=== PATIENT | male | born 1985 | race Caucasian/White ===

== ENCOUNTER 2016-03-16 15:34 | Emergency (ER) | payer BC, OTHER ==
[2016-03-16 18:22] LABS: Basophils # (A) 0.1 k/uL (0-0.2); Basophils % (A) 1 %; CH 30.6; CHCM 35.1; Eosinophils # (A) 0.1 k/uL (0-0.7); Eosinophils % (A) 2 %; HCT 47.7 % (39.0-53.0); HDW 2.87; HGB 15.9 gm/dL (13.0-17.5); Luc # (Auto) 0.11; Luc % (Auto) 1; Lymphocytes # (A) 2.6 k/uL (1.0-4.8); Lymphocytes % (A) 35 %; MCH 29.3 pg (25.0-35.0); MCHC 33.4 g/dL (31.0-37.0); MCV 87.6 fL (80.0-100.0); Monocytes # (A) 0.4 k/uL (0-1.0); Monocytes % (A) 5 %; Neutrophils # (A) 4.2 k/uL (1.3-7.7); Neutrophils % (A) 55 %; RBC 5.44 m/uL (4.30-5.90); RDW 12.7 % (11.5-15.5); WBC 7.5 k/uL (3.8-10.6); WBC (Perox) 7.16
[2016-03-16 18:24] LABS: Anion Gap 12 mmol/L; Blood Urea Nitrogen 14 mg/dL (9-20); Calcium 9.8 mg/dL (8.4-10.2); Carbon Dioxide 28 mmol/L (22-30); Chloride 103 mmol/L (98-107); Glucose 87 mg/dL (74-99); Magnesium 2.1 mg/dL (1.6-2.3); Non-African American GFR(MDRD) >60 (>60 ml/min/1.73 sqM); Potassium 4.2 mmol/L (3.5-5.1); Sodium 143 mmol/L (137-145)
[2016-03-16 18:25] LABS: Appearance,Urine Clear (Clear); Bilirubin,Urine Negative (Negative); Glucose,Urine (UA) Negative (Negative); Ketones,Urine Negative (Negative); Leukocyte Esterase,Urine Negative (Negative); Nitrite,Urine Negative (Negative); Protein,Urine Negative (Negative); Specific Gravity,Urine 1.007 (1.001-1.035); UA Billing (MACRO vs. MICRO) CHEM; Urobilinogen,Urine <2.0 mg/dL (<2.0)
--- NOTE | 2016-03-16 19:05 | ED ---
General Adult HPI - General Chief complaint: Extremity Injury, Lower Stated complaint: Hernia Time Seen by Provider: 03/16/16 17:24 Source: patient Mode of arrival: ambulatory Limitations: no limitations - History of Present Illness Initial comments: Patient is a 30-year-old male who presents to ED with a chief complaint of left- sided inguinal pain. Patient states that this pain has been present over the course the past 2-1/2 weeks. He states that it became present while he was lifting something at work. Patient states the pain is intermittent in nature and made worse when he is lifting objects at work. Patient states that he does have a history of left-sided inguinal hernia that was repaired about 3 years ago. The patient does not remember the name of the surgeon who repaired his inguinal hernia at this point in time. Patient denies any nausea or vomiting. Patient denies any dysuria or hematuria. He does state that the pain in the inguinal region does radiate down into the left testicle. Patient denies any recent trauma to the scrotum or testes. Patient initially went to an urgent care facility who evaluated the patient and recommended that he come to the ED for further evaluation. I specifically recommended that the patient have a ultrasound performed of his scrotum to rule out any pathology. - Related Data Home Medications Medication Instructions Recorded Confirmed Acetaminophen Tab [Tylenol Tab] 500 - 1,000 mg PO Q6H PRN 03/16/16 03/16/16 Ibuprofen [Motrin] 200 - 400 mg PO Q6H PRN 03/16/16 03/16/16 Allergies Allergy/AdvReac Type Severity Reaction Status Date / Time No Known Allergies Allergy Verified 03/16/16 17:42 Review of Systems ROS Statement: Those systems with pertinent positive or pertinent negative responses have been documented in the HPI. ROS Other: All systems not noted in ROS Statement are negative. Constitutional: Denies: fever, chills, weakness Eyes: Denies: eye pain ENT: Denies: ear pain, throat pain, dental pain Respiratory: Denies: cough, dyspnea, wheezes Cardiovascular: Denies: chest pain, palpitations Endocrine: Denies: fatigue Gastrointestinal: Reports: abdominal pain. Denies: nausea, vomiting, diarrhea, constipation Genitourinary: Reports: testicular pain, other (left-sided inguinal pain). Denies: urgency, dysuria, frequency, hematuria Musculoskeletal: Denies: back pain Skin: Denies: rash, lesions Neurological: Denies: headache, weakness Psychiatric: Denies: anxiety, depression Past Medical History Past Medical History: No Reported History History of Any Multi-Drug Resistant Organisms: None Reported Past Surgical History: Hernia Repair Past Psychological History: No Psychological Hx Reported Smoking Status: Never smoker Past Alcohol Use History: None Reported Past Drug Use History: None Reported General Exam Limitations: no limitations General appearance: alert, in no apparent distress Head exam: Present: atraumatic, normocephalic Eye exam: Present: normal appearance, PERRL Pupils: Present: normal accommodation ENT exam: Present: normal exam, mucous membranes moist Neck exam: Present: normal inspection, full ROM Respiratory exam: Present: normal lung sounds bilaterally. Absent: respiratory distress, wheezes, rales, rhonchi, stridor Cardiovascular Exam: Present: regular rate, normal rhythm GI/Abdominal exam: Present: soft, tenderness (mild tenderness noted in the left inguinal region). Absent: distended, guarding, rebound, rigid exam: Present: normal inspection, testicular tenderness (mild tenderness to palpation of the left testicle). Absent: scrotal swelling External exam: Present: normal external exam Back exam: Present: normal inspection Neurological exam: Present: alert, oriented X3 Psychiatric exam: Present: normal affect, normal mood Skin exam: Present: warm, dry, intact Course Vital Signs 03/16/16 03/16/16 16:48 19:41 Temperature 97.5 F L 98.2 F Pulse Rate 64 69 Respiratory 20 18 Rate Blood Pressure 119/71 120/82 O2 Sat by Pulse 99 98 Oximetry Medical Decision Making - Medical Decision Making Patient is a 30-year-old male who presents to ED with a chief complaint of left lower abdominal pain. This pain is particularly located in the inguinal region. Pain began after the patient was lifting objects at work. This pain is exacerbated by lifting objects. Patient has a history of left-sided inguinal hernia in the past. Patient states that the pain is intermittent in nature. He's been taking Tylenol at home for pain control. Patient went seen in urgent care earlier today. They recommended patient come to the ED for further evaluation using ultrasound. We'll order an ultrasound scrotum for the patient. Examination of the patient's left testicle demonstrated tenderness to palpation of the epididymis. There is some possibly patient may have epididymitis. Will obtain a urinalysis as well as basic labs for the patient. I offered the patient pain medications, though he states that he would prefer to hold off at this point in time due to the fact that his pain is not severe. 7:44 PM Updated patient of overall findings, including possible left-sided inguinal hernia. I suspect that this is likely the case given that the patient has had recurrent episodes of left-sided inguinal hernia in the past. The patient has requested a referral to a General Surgeon. I will provide him with this information so that he can follow up appropriately. Patient's pain is well- controlled here in the ED. Will discharge him home at this point in time. No evidence of acute infection. Ultrasound of the scrotum was noted to be unremarkable aside from possible inguinal hernia. Encouraged the patient to use Motrin or Tylenol for pain control. I provided the patient with a work note that states that he is not to lift more than 15 pounds until further evaluated by General Surgery. I have answered all of the patient's questions to his satisfaction. I have encouraged him to return the ED should his symptoms worsen, particularly if associated with fever or chills. - Lab Data Result diagrams: 03/16/16 17:55 03/16/16 17:55 Lab Results 03/16/16 03/16/16 03/16/16 Range/Units 17:55 17:55 17:55 WBC 7.5 (3.8-10.6) k/uL RBC 5.44 (4.30-5.90) m/uL Hgb 15.9 (13.0-17.5) gm/dL Hct 47.7 (39.0-53.0) % MCV 87.6 (80.0-100.0) fL MCH 29.3 (25.0-35.0) pg MCHC 33.4 (31.0-37.0) g/dL RDW 12.7 (11.5-15.5) % Plt Count 259 (150-450) k/uL Neutrophils % 55 % Lymphocytes % 35 % Monocytes % 5 % Eosinophils % 2 % Basophils % 1 % Neutrophils # 4.2 (1.3-7.7) k/uL Lymphocytes # 2.6 (1.0-4.8) k/uL Monocytes # 0.4 (0-1.0) k/uL Eosinophils # 0.1 (0-0.7) k/uL Basophils # 0.1 (0-0.2) k/uL Sodium 143 (137-145) mmol/L Potassium 4.2 (3.5-5.1) mmol/L Chloride 103 (98-107) mmol/L Carbon Dioxide 28 (22-30) mmol/L Anion Gap 12 mmol/L BUN 14 (9-20) mg/dL Creatinine 0.90 (0.66-1.25) mg/dL Est GFR (MDRD) Af Amer >60 (>60 ml/min/1.73 sqM) Est GFR (MDRD) Non-Af >60 (>60 ml/min/1.73 sqM) Glucose 87 (74-99) mg/dL Calcium 9.8 (8.4-10.2) mg/dL Magnesium 2.1 (1.6-2.3) mg/dL Urine Color Light Yellow Urine Appearance Clear (Clear) Urine pH 7.0 (5.0-8.0) Ur Specific [place] 1.007 (1.001-1.035) Urine Protein Negative (Negative) Urine Glucose (UA) Negative (Negative) Urine Ketones Negative (Negative) Urine Blood Negative (Negative) Urine Nitrate Negative (Negative) Urine Bilirubin Negative (Negative) Urine Urobilinogen <2.0 (<2.0) mg/dL Ur Leukocyte Esterase Negative (Negative) Disposition Clinical Impression: Left inguinal hernia, Left inguinal pain Disposition: HOME SELF-CARE Condition: Good Instructions: Inguinal Hernia (ED) Additional Instructions: Please take Tylenol or Motrin while at home for pain control. Please return to the ED should you have worsening of your pain, particularly if associated with nausea or vomiting. Referrals: Tammy Lagunas MD [STAFF PHYSICIAN] - 03/25/16 (Dr. Lagunas is a General Surgeon. You can call her to schedule an appointment to have your inguinal hernia repaired) Time of Disposition: 19:44
--- NOTE | 2016-03-16 19:27 | US ---
EXAMINATION TYPE: US scrotum with doppler. Grayscale and color Doppler Duplex imaging performed of jessica jansen scrotum. DATE OF EXAM: 03/16/2016 7:05 PM COMPARISON: NONE CLINICAL HISTORY: Left testicular pain. R/O torsion, epididymitis, left inguinal pain. EXAM MEASUREMENTS: TESTICLES: Right Testicle: 4.3 x 2.2 x 2.7 cm Left Testicle: 4.0 x 2.5 x 2.7cm cm EPIDIDYMIS HEAD: Right Epididymis: 1.1 cm Left Epididymis: 0.9 cm Doppler performed to assess for testicular vascularity; good bilateral color flow and waveforms are s een. There is no evidence of testicular torsion. Presence of hydrocele on left measuring 4.3 x 1.7 x 2.0cm TECHNOLOGIST IMPRESSION: Left hydrocele, scanned inguinal canal on left at area of pain as well there appears to be a possible hernia on that side. It appears similar with and without valsalva maneuver. There appears to be some peristalsis within with valsalva. Patient had previous hernia repair at [facility] area. IMPRESSION: 1. No evidence of torsion. 2. Prior surgery versus recurrent left inguinal hernia. 3. Left hydrocele
[2016-03-16 19:43] VITALS: BP 120/82; PULSE 69; RESP 18; TEMP 98.2
== END 2016-03-16 20:00 | disposition home or self-care (01) ==
LOC: EC 15:34
DX: K40.90 Unilateral inguinal hernia, without obstruction or gangrene, not specified as recurrent (principal); X50.9XXA Other and unspecified overexertion or strenuous movements or postures, initial encounter; Y99.0 Civilian activity done for income or pay; N50.819 Testicular pain, unspecified
CPT/HCPCS: 36415; 76870; 80048; 81003; 83735; 85025; 87086; 93975; 99284

== ENCOUNTER → 2016-03-19 | Outpatient (CLI) | payer BC, OTHER ==
--- NOTE | 2016-03-19 11:32 | CT ---
EXAMINATION TYPE: CT pelvis w con DATE OF EXAM: 03/19/2016 9:34 AM COMPARISON: NONE HISTORY: 30-year-old male with LLQ abdominal pain TECHNIQUE: Contiguous axial scanning of the pelvis following administration of 100 ml Omnipaque 300 I V contrast. Delayed images through the bladder and coronal/sagittal reconstructions performed. CT DLP: 472.70 mGycm Automated exposure control for dose reduction was used. FINDINGS: Visualized lower abdomen shows mesenteric lymphadenopathy measuring up to 1 cm. No dilated small rafita l, free fluid, or free air. Normal appendix. Oral contrast progressed to the transverse colon. No pericolonic inflammatory change Bladder is urine distended. There is a small left hydrocele with a 7 mm calcification in the left hem iscrotum inferiorly. No pelvic lymphadenopathy seen. Minimal strandy density behind the left deep inguinal ring, axial image 47. A tiny left-sided inguina l hernia may be present. No sizable inguinal or femoral canal hernia is seen. Bones: No osseous destructive process. IMPRESSION: 1. NONENLARGED AND ENLARGED MESENTERIC LYMPH NODES MEASURING UP TO 1 CM. CORRELATE FOR THE POSSIBILIT Y OF A MESENTERIC ADENITIS. 2. NO SIZABLE INGUINAL OR FEMORAL CANAL HERNIA. 3. SOME SUBTLE STRANDING BEHIND THE DEEP INGUINAL RING ON THE LEFT OF UNCERTAIN ETIOLOGY. SOME INFLAM MATION HERE CAN BE SEEN IN THE SETTING OF AN UNDERLYING EPIDIDYMITIS. CLINICALLY CORRELATE ESPECIALLY GIVEN THE SMALL LEFT HYDROCELE. 4. A 7 MM CALCIFICATION IN THE INFERIOR LEFT HEMISCROTUM COULD REPRESENT A PHLEBOLITH OR SCROTAL PEAR L.
== END | disposition home or self-care (01) ==
LOC: RADCTMAIN 09:07
PROVIDERS: ATTEND Surgery
DX: N43.3 Hydrocele, unspecified (principal); N50.89 Other specified disorders of the male genital organs; R59.0 Localized enlarged lymph nodes
CPT/HCPCS: 72193; Q9967

== ENCOUNTER 2016-11-14 08:34 | Emergency (ER) | payer OTHER ==
[2016-11-14] MEDS ORDERED: SODIUM CHLORIDE 0.9% 1,000 ML IV STA (09:08)
--- NOTE | 2016-11-14 09:10 | ED ---
General Adult HPI - General Chief complaint: Abdominal Pain Stated complaint: abdominal and testicular pain Time Seen by Provider: 11/14/16 09:03 Source: patient, RN notes reviewed Mode of arrival: ambulatory Limitations: no limitations - History of Present Illness Initial comments: Patient is 30-year-old male who presents emergency room today with chief complaint of left-sided abdominal pain and testicle pain over the last 5 days. He states that 5 days ago when he woke up in the morning. States been more constant persistent pain over the last few days. He just admits that there is some swelling to left testicle. He states he has had frequent urination. He states he is not worried about any STDs. He admits pain left side of the abdomen as well. States been constant over the last day. Patient denies any other complaints or symptoms. Patient denies any recent fever, chills, shortness of breath, chest pain, back pain, nausea or vomiting, numbness or tingling, dysuria or hematuria, constipation or diarrhea, headaches or visual changes, or any other complaints. - Related Data Home Medications Medication Instructions Recorded Confirmed Acetaminophen Tab [Tylenol Tab] 500 - 1,000 mg PO Q6H PRN 03/16/16 11/14/16 Ibuprofen [Motrin] 200 - 400 mg PO Q6H PRN 03/16/16 11/14/16 Previous Rx's Medication Instructions Recorded Ondansetron [Zofran] 4 mg PO Q8HR PRN #15 tab 11/14/16 Allergies Allergy/AdvReac Type Severity Reaction Status Date / Time No Known Allergies Allergy Verified 11/14/16 09:16 Review of Systems ROS Statement: Those systems with pertinent positive or pertinent negative responses have been documented in the HPI. ROS Other: All systems not noted in ROS Statement are negative. Past Medical History Past Medical History: No Reported History History of Any Multi-Drug Resistant Organisms: None Reported Past Surgical History: Hernia Repair Past Psychological History: No Psychological Hx Reported Smoking Status: Never smoker Past Alcohol Use History: None Reported Past Drug Use History: None Reported General Exam - General Exam Comments Initial Comments: General: The patient is awake and alert, in no distress, and does not appear acutely ill. Eye: Pupils are equal, round and reactive to light, extra-ocular movements are intact. No nystagmus. There is normal conjunctiva bilaterally. No signs of icterus. Ears, nose, mouth and throat: There are moist mucous membranes and no oral lesions. Neck: The neck is supple, there is no tenderness or JVD. Cardiovascular: There is a regular rate and rhythm. No murmur, rub or gallop is appreciated. Respiratory: Lungs are clear to auscultation, respirations are non-labored, breath sounds are equal. No wheezes, stridor, rales, or rhonchi. Gastrointestinal: Per 7. Normal bowel sounds. Soft on palpation. Patient does have some mild tenderness to the left lower quadrant. No rebound tenderness no guarding. No CVA tenderness. Musculoskeletal: Normal ROM, no tenderness. Strength 5/5. Sensation intact. Pulses equal bilaterally 2+. Neurological: A&O x 3. CN II-XII intact, There are no obvious motor or sensory deficits. Coordination appears grossly intact. Speech is normal. Skin: Skin is warm and dry and no rashes or lesions are noted. Psychiatric: Cooperative, appropriate mood & affect, normal judgment. : Circumcised male. Mild swelling to left scrotum. Mildly tender on exam. Limitations: no limitations Course Vital Signs 11/14/16 11/14/16 08:42 09:42 Temperature 97.4 F L Pulse Rate 72 86 Respiratory 18 18 Rate Blood Pressure 138/87 109/66 O2 Sat by Pulse 99 99 Oximetry Procedures - Procedures Initial comment: Patient's right middle finger was cleaned with ChloraPrep. Electrocautery tool used to make a hole through the nail. Patient did have relief. Medical Decision Making - Medical Decision Making CT of the abdomen and pelvis reviewed and does show mild left-sided hydronephrosis. There is a 2 mm cuts occasional bladder. Patient is able to forward without difficulty here in emergency room. Patient's labs are been reviewed. Results show shows evidence for hydrocele. Patient also had a subungual hematoma to the right nail that occurred 1 week ago while at work. Small cautery tool was used to bur hole in the nail which didn't relieve the pressure. At this time patient advised most likely a recently passed kidney stone. Advised to follow-up family doctor return here to the emergency room. He is pain-free symptoms. This time. - Lab Data Result diagrams: 11/14/16 09:19 11/14/16 09:19 Lab Results 11/14/16 11/14/16 11/14/16 Range/Units 09:19 09:19 09:19 WBC 10.6 (3.8-10.6) k/uL RBC 5.33 (4.30-5.90) m/uL Hgb 16.3 (13.0-17.5) gm/dL Hct 46.4 (39.0-53.0) % MCV 87.2 (80.0-100.0) fL MCH 30.5 (25.0-35.0) pg MCHC 35.0 (31.0-37.0) g/dL RDW 12.8 (11.5-15.5) % Plt Count 211 (150-450) k/uL Neutrophils % 79 % Lymphocytes % 15 % Monocytes % 3 % Eosinophils % 1 % Basophils % 0 % Neutrophils # 8.4 H (1.3-7.7) k/uL Lymphocytes # 1.6 (1.0-4.8) k/uL Monocytes # 0.4 (0-1.0) k/uL Eosinophils # 0.1 (0-0.7) k/uL Basophils # 0.0 (0-0.2) k/uL Sodium 141 (137-145) mmol/L Potassium 4.0 (3.5-5.1) mmol/L Chloride 104 (98-107) mmol/L Carbon Dioxide 28 (22-30) mmol/L Anion Gap 9 mmol/L BUN 17 (9-20) mg/dL Creatinine 1.08 (0.66-1.25) mg/dL Est GFR (MDRD) Af Amer >60 (>60 ml/min/1.73 sqM) Est GFR (MDRD) Non-Af >60 (>60 ml/min/1.73 sqM) Glucose 95 (74-99) mg/dL Calcium 9.4 (8.4-10.2) mg/dL Total Bilirubin 0.7 (0.2-1.3) mg/dL AST 36 (17-59) U/L ALT 58 (21-72) U/L Alkaline Phosphatase 67 (38-126) U/L Total Protein 6.9 (6.3-8.2) g/dL Albumin 4.4 (3.5-5.0) g/dL Lipase 45 (23-300) U/L Urine Color Yellow Urine Appearance Turbid (Clear) Urine pH 7.0 (5.0-8.0) Ur Specific [place] 1.018 (1.001-1.035) Urine Protein Negative (Negative) Urine Glucose (UA) Negative (Negative) Urine Ketones Negative (Negative) Urine Blood Negative (Negative) Urine Nitrite Negative (Negative) Urine Bilirubin Negative (Negative) Urine Urobilinogen <2.0 (<2.0) mg/dL Ur Leukocyte Esterase Negative (Negative) Amorphous Sediment Moderate H (None) /hpf Urine Mucus Rare H (None) /hpf Disposition Clinical Impression: Kidney stone, Subungual hematoma Disposition: HOME SELF-CARE Condition: Good Instructions: Kidney Stones (ED), Subungual Hematoma (ED) Additional Instructions: Please use medication as discussed. Please follow-up with family doctor in the next 2 days of symptoms have not improved. Please return to emergency room if the symptoms increase or worsen or for any other concerns. Prescriptions: Ondansetron [Zofran] 4 mg PO Q8HR PRN #15 tab PRN Reason: Nausea Referrals: None,Stated [Primary Care Provider] - 1-2 days Francis Patel MD [STAFF PHYSICIAN] - 1-2 days Time of Disposition: 12:29
[2016-11-14 09:41] LABS: Amorphous Sediment,Urine Moderate /hpf; Appearance,Urine Turbid (Clear); Bilirubin,Urine Negative (Negative); Glucose,Urine (UA) Negative (Negative); Ketones,Urine Negative (Negative); Leukocyte Esterase,Urine Negative (Negative); Mucus,Urine Rare /hpf; Nitrite,Urine Negative (Negative); Particle Count 18831; Protein,Urine Negative (Negative); Specific Gravity,Urine 1.018 (1.001-1.035); UA Billing (MACRO vs. MICRO) MICRO; Urobilinogen,Urine <2.0 mg/dL (<2.0)
[2016-11-14 09:44] LABS: Basophils % (A) 0 %; CH 30.5; CHCM 35.1; Eosinophils # (A) 0.1 k/uL (0-0.7); Eosinophils % (A) 1 %; HCT 46.4 % (39.0-53.0); HDW 2.79; HGB 16.3 gm/dL (13.0-17.5); Luc # (Auto) 0.14; Luc % (Auto) 1; Lymphocytes # (A) 1.6 k/uL (1.0-4.8); Lymphocytes % (A) 15 %; MCH 30.5 pg (25.0-35.0); MCV 87.2 fL (80.0-100.0); Mean Platelet Volume 6.6; Monocytes # (A) 0.4 k/uL (0-1.0); Monocytes % (A) 3 %; Neutrophils # (A) 8.4 k/uL (1.3-7.7); Neutrophils % (A) 79 %; RBC 5.33 m/uL (4.30-5.90); RDW 12.8 % (11.5-15.5); WBC 10.6 k/uL (3.8-10.6)
[2016-11-14 09:45] LABS: ALT 58 U/L (21-72); AST 36 U/L (17-59); Alkaline Phosphatase 67 U/L (38-126); Anion Gap 9 mmol/L; Blood Urea Nitrogen 17 mg/dL (9-20); Calcium 9.4 mg/dL (8.4-10.2); Carbon Dioxide 28 mmol/L (22-30); Chloride 104 mmol/L (98-107); Glucose 95 mg/dL (74-99); Non-African American GFR(MDRD) >60 (>60 ml/min/1.73 sqM); Sodium 141 mmol/L (137-145); Total Bilirubin 0.7 mg/dL (0.2-1.3); Total Protein 6.9 g/dL (6.3-8.2)
--- NOTE | 2016-11-14 10:54 | US ---
EXAMINATION TYPE: US scrotum with doppler. DATE OF EXAM: 11/14/2016 COMPARISON: 03/16/2016 CLINICAL HISTORY: 30-year-old male Pain. Left testicle pain since Friday. History of left hernia with repair x 3 years ago. No injury. Slight swelling. TECHNIQUE: Multiple sonographic images of the scrotum were obtained. Color Doppler and spectral wavef orm analysis of the testicular arteries and veins. FINDINGS: TESTICLES: Right Testicle: 4.1 x 2.4 x 2.9 cm Left Testicle: 3.9 x 2.6 x 2.9 cm There is symmetric, homogeneous appearance to the testicles without hyperemia or mass. Satisfactory a rterial and venous flow on both sides. EPIDIDYMIS HEAD: Right Epididymis: 1.1 x 0.8 x 0.9 cm with a 5 mm epididymal head cyst. Left Epididymis: 1.0 x 0.8 x 0.7 cm. There is a 10 x 8 mm echogenic focus inferiorly in the scrotal sac, probable scrotal alban. Presence of hydroceles: Small on the right and moderate on the left. Presence of varicoceles: no IMPRESSION: 1. No sonographic evidence for testicular torsion or epididymoorchitis. 2. Small right and moderate-sized left hydroceles. 3. Probable 1 cm left-sided scrotal alban.
--- NOTE | 2016-11-14 12:16 | CT ---
EXAMINATION TYPE: CT abdomen pelvis wo con DATE OF EXAM: 11/14/2016 COMPARISON: CT pelvis 03/19/2016 HISTORY: 30-year-old male with Abdominal and testicular pain CT DLP: 544.50 mGycm. Automated exposure control for dose reduction was used. TECHNIQUE: Contiguous axial scanning of the abdomen and pelvis without IV contrast. Coronal and sagit donta reconstructions performed. FINDINGS: The heart is normal size without pericardial effusion. Lung bases clear without pleural effusion. Noncontrast appearance of the liver, gallbladder, adrenal glands, right kidney, spleen with hilar spl enule, and pancreas show no gross adenopathy. There is asymmetric left-sided pelvicaliectasis/mild hydronephrosis. No renal calculus or suspicious calcification seen along the course of either ureter. There are scattered nonenlarged and borderline enlarged mesenteric lymph nodes are present measuring up to 5 mm. This is unchanged from 03/19/2016. Normal appendix. Mild stool burden without pericolonic inflammatory change. Bladder is prominently distended measuring up to 14.4 cm craniocaudal. There is a punctate 2 mm calci fication along the posterior midline of the bladder. No abnormal fluid collection in the pelvis or pe lvic lymphadenopathy seen. Bones: No osseous destructive process. IMPRESSION: 1. Mild left-sided hydronephrosis without any obstructing calculus seen. Correlate to exclude underl kristina infection. More likely, findings may reflect a recently passed ureteral stone as there is a 2 mm punctate calcification dependent within the bladder. 2. Prominent bladder distention up to 14.4 cm. Correlate to ensure voluntary retention.
[2016-11-14 12:32] VITALS: RESP 16
[2016-11-14 13:12] VITALS: BP 127/86; PULSE 86; TEMP 98.4
== END 2016-11-14 13:12 | disposition home or self-care (01) ==
LOC: EC 08:34
DX: S60.031A Contusion of right middle finger without damage to nail, initial encounter (principal); N20.0 Calculus of kidney; N50.812 Left testicular pain
CPT/HCPCS: 11740; 36415; 74176; 76870; 80053; 81001; 83690; 85025; 87491; 87591; 93975; 96360; 99284

== ENCOUNTER 2017-05-24 09:40 | Emergency (ER) | payer OTHER ==
[2017-05-24 09:45] VITALS: TEMP 97
[2017-05-24] MEDS ORDERED: FAMOTIDINE 20 MG/2 ML VIAL IV STA (10:18)
--- NOTE | 2017-05-24 10:22 | ED ---
GI Bleed HPI - General Chief complaint: GI Bleed Stated complaint: VOMITING BLOOD Time Seen by Provider: 05/24/17 10:01 Source: patient Mode of arrival: ambulatory Limitations: no limitations - History of Present Illness Initial comments: This is a 31-year-old male with no past medical history who presents emergency department for an episode of hematemesis. The patient states that he woke up this morning and drank some water. He immediately vomited which was mostly water however then continued to vomit noticed that there was some blood. He describes it as bright red. He states that it was about 2 teaspoons full. He states he felt a little bit queasy for a while had some epigastric pain however this has since resolved. He denies any lightheadedness or chest pain. No shortness of breath. The patient does admit to going out and drinking 7 or 8 beers last night. He does not drink regularly and states that he only has beers a couple times a week. He states that typically he'll have 1-3 beers. He does admit to taking [id number] NSAIDs for recurrent neck pain and headaches. He states that he takes something almost daily. Denies any dark stools or bloody stools. No abdominal discomfort at this time. No other complaints. - Related Data Home Medications Medication Instructions Recorded Confirmed Acetaminophen Tab [Tylenol Tab] 500 - 1,000 mg PO Q6H PRN 03/16/16 11/14/16 Ibuprofen [Motrin] 200 - 400 mg PO Q6H PRN 03/16/16 11/14/16 Previous Rx's Medication Instructions Recorded Ondansetron [Zofran] 4 mg PO Q8HR PRN #15 tab 11/14/16 Allergies Allergy/AdvReac Type Severity Reaction Status Date / Time No Known Allergies Allergy Verified 05/24/17 09:42 Review of Systems ROS Statement: Those systems with pertinent positive or pertinent negative responses have been documented in the HPI. ROS Other: All systems not noted in ROS Statement are negative. Past Medical History Past Medical History: No Reported History Additional Past Medical History / Comment(s): kidney stones History of Any Multi-Drug Resistant Organisms: None Reported Past Surgical History: Hernia Repair Past Psychological History: No Psychological Hx Reported Smoking Status: Never smoker Past Alcohol Use History: None Reported Past Drug Use History: None Reported General Exam - General Exam Comments Initial Comments: Constitutional: Awake alert Appears comfortable Head: Normocephalic atraumatic Eyes: no conjunctival injection No scleral icterus EOMI Neck: No JVD Supple Heart: Regular rate rhythm normal S1-S2 no murmurs Lungs: Clear to auscultation bilaterally No wheezing No rales Abdomen: Soft nondistended nontender Extremities: Non edematous DP pulses intact Radial pulses intact Neuro: A&Ox3 No focal neurologic deficits Psych: Appropriate mood and affect Limitations: no limitations Course Vital Signs 05/24/17 05/24/17 09:42 11:50 Temperature 97.0 F L Pulse Rate 88 86 Respiratory 17 16 Rate Blood Pressure 141/93 130/78 O2 Sat by Pulse 98 98 Oximetry Medical Decision Making - Medical Decision Making This is a 31-year-old who came in for hematemesis. The patient had blood work performed that was unremarkable. Patient had no symptoms while in the emergency department. I instructed the patient to discontinue any NSAIDs. He needs to belt picker some Zantac and Maalox at home. Also he needs to avoid spicy foods and alcohol. I suspect that the patient's symptoms are likely due to gastritis and possible small gastric ulcer. I told him that if he had worsening vomiting, hematemesis, or abdominal pain needs return emergency Department. Otherwise needs to follow-up with his primary doctor for further evaluation. All questions were answered. - Lab Data Result diagrams: 05/24/17 10:50 05/24/17 10:50 Lab Results 05/24/17 05/24/17 Range/Units 10:50 10:50 WBC 9.0 (3.8-10.6) k/uL RBC 5.34 (4.30-5.90) m/uL Hgb 16.1 (13.0-17.5) gm/dL Hct 45.5 (39.0-53.0) % MCV 85.2 (80.0-100.0) fL MCH 30.1 (25.0-35.0) pg MCHC 35.3 (31.0-37.0) g/dL RDW 12.9 (11.5-15.5) % Plt Count 210 (150-450) k/uL Neutrophils % 80 % Lymphocytes % 16 % Monocytes % 2 % Eosinophils % 2 % Basophils % 0 % Neutrophils # 7.1 (1.3-7.7) k/uL Lymphocytes # 1.4 (1.0-4.8) k/uL Monocytes # 0.2 (0-1.0) k/uL Eosinophils # 0.2 (0-0.7) k/uL Basophils # 0.0 (0-0.2) k/uL Sodium 143 (137-145) mmol/L Potassium 4.4 (3.5-5.1) mmol/L Chloride 102 (98-107) mmol/L Carbon Dioxide 28 (22-30) mmol/L Anion Gap 13 mmol/L BUN 13 (9-20) mg/dL Creatinine 0.76 (0.66-1.25) mg/dL Est GFR (CKD-EPI)AfAm >90 (>60 ml/min/1.73 sqM) Est GFR (CKD-EPI)NonAf >90 (>60 ml/min/1.73 sqM) Glucose 91 (74-99) mg/dL Calcium 9.6 (8.4-10.2) mg/dL Total Bilirubin 0.4 (0.2-1.3) mg/dL AST 28 (17-59) U/L ALT 66 (21-72) U/L Alkaline Phosphatase 81 (38-126) U/L Total Protein 6.7 (6.3-8.2) g/dL Albumin 4.3 (3.5-5.0) g/dL Lipase 80 (23-300) U/L Disposition Clinical Impression: Hematemesis, Gastritis Disposition: HOME SELF-CARE Condition: Stable Instructions: Gastritis (ED) Additional Instructions: Stop taking any NSAIDs including Motrin, Aleve, and Excedrin. Use Zantac and Maalox if you develop stomach pains. See your primary doctor next week. If the vomiting worsens please return to the ED. Referrals: None,Stated [Primary Care Provider] - 1-2 days
[2017-05-24 11:03] LABS: Basophils % (A) 0 %; Eosinophils # (A) 0.2 k/uL (0-0.7); Eosinophils % (A) 2 %; HCT 45.5 % (39.0-53.0); HGB 16.1 gm/dL (13.0-17.5); Lymphocytes # (A) 1.4 k/uL (1.0-4.8); Lymphocytes % (A) 16 %; MCH 30.1 pg (25.0-35.0); MCHC 35.3 g/dL (31.0-37.0); MCV 85.2 fL (80.0-100.0); Mean Platelet Volume 6.6; Monocytes # (A) 0.2 k/uL (0-1.0); Monocytes % (A) 2 %; Neutrophils # (A) 7.1 k/uL (1.3-7.7); Neutrophils % (A) 80 %; Platelet Count 210 k/uL (150-450); RBC 5.34 m/uL (4.30-5.90); RDW 12.9 % (11.5-15.5)
[2017-05-24 11:12] LABS: ALT 66 U/L (21-72); AST 28 U/L (17-59); Albumin 4.3 g/dL (3.5-5.0); Alkaline Phosphatase 81 U/L (38-126); Anion Gap 13 mmol/L; Blood Urea Nitrogen 13 mg/dL (9-20); Calcium 9.6 mg/dL (8.4-10.2); Carbon Dioxide 28 mmol/L (22-30); Chloride 102 mmol/L (98-107); Glucose 91 mg/dL (74-99); Lipase 80 U/L (23-300); Potassium 4.4 mmol/L (3.5-5.1); Sodium 143 mmol/L (137-145); Total Bilirubin 0.4 mg/dL (0.2-1.3); Total Protein 6.7 g/dL (6.3-8.2)
[2017-05-24 11:51] VITALS: BP 130/78; PULSE 86; RESP 16
== END 2017-05-24 11:45 | disposition home or self-care (01) ==
LOC: EC 09:40
DX: K29.70 Gastritis, unspecified, without bleeding (principal); K92.0 Hematemesis
CPT/HCPCS: 36415; 80053; 83690; 85025; 96374; 99284

== ENCOUNTER 2020-03-23 04:20 | Emergency (ER) | payer BC ==
[2020-03-23 04:27] VITALS: BP 136/95; PULSE 81; RESP 24; TEMP 98.5
[2020-03-23] MEDS ORDERED: KETOROLAC 15 MG/ML 1 ML VIAL IVP STA (04:40)
[2020-03-23] MEDS ORDERED: MORPHINE SULFATE 4 MG/ML SYRINGE IV STA (04:40)
[2020-03-23] MEDS ORDERED: SODIUM CHLORIDE 0.9% 1,000 ML IV STA (04:40)
[2020-03-23 05:10] LABS: HCT 45.1 % (39.0-53.0); Lymphocytes % (A) 13 %; MCHC 35.4 g/dL (31.0-37.0); MCV 87.4 fL (80.0-100.0); Mean Platelet Volume 6.5; Monocytes % (A) 5 %; Neutrophils % (A) 79 %; Platelet Count 243 k/uL (150-450); RBC 5.16 m/uL (4.30-5.90); RDW 12.4 % (11.5-15.5); WBC 11.6 k/uL (3.8-10.6)
[2020-03-23 05:11] LABS: Basophils # (A) 0.1 k/uL (0-0.2); Basophils % (A) 0 %; Eosinophils # (A) 0.2 k/uL (0-0.7); Eosinophils % (A) 2 %; Lymphocytes # (A) 1.6 k/uL (1.0-4.8); Monocytes # (A) 0.5 k/uL (0-1.0); Neutrophils # (A) 9.2 k/uL (1.3-7.7)
--- NOTE | 2020-03-23 05:17 | CT ---
EXAM: CT Abdomen and Pelvis Without Intravenous Contrast CLINICAL HISTORY: Abdominal pain TECHNIQUE: Axial computed tomography images of the abdomen and pelvis without intravenous contrast. CTDI is 11.37 mGy and DLP is 653.4 mGy-cm. This CT exam was performed using one or more of the following dose reduction techniques: automated exposure control, adjustment of the mA and/or kV according to patient size, and/or use of iterative reconstruction technique. COMPARISON: 11/14/16 FINDINGS: Lung bases: Unremarkable. No mass. No consolidation. ABDOMEN: Liver: Unremarkable. Gallbladder and bile ducts: Unremarkable. No calcified stones. No ductal dilation. Pancreas: Unremarkable. No ductal dilation. Spleen: Unremarkable. No splenomegaly. Adrenals: Unremarkable. No mass. Kidneys and ureters: There is a 2-3 mm obstructing calculus at the left ureterovesical junction, with mild left-sided hydroureteronephrosis and left renal edema. Findings are consistent with left-sided obstructive uropathy. Additional punctate nonobstructing calculus seen within the left renal collecting system. Stomach and bowel: Unremarkable. No obstruction. No mucosal thickening. PELVIS: Appendix: No findings to suggest acute appendicitis. Bladder: Unremarkable. No stones. Reproductive: Unremarkable as visualized. ABDOMEN and PELVIS: Intraperitoneal space: Unremarkable. No free air. No significant fluid collection. Bones/joints: No acute fracture. No dislocation. Soft tissues: Unremarkable. Vasculature: Unremarkable. No abdominal aortic aneurysm. Lymph nodes: Unremarkable. No enlarged lymph nodes. IMPRESSION: Left-sided obstructive uropathy due to a 2-3 mm obstructing calculus at the left UVJ.
[2020-03-23 05:26] LABS: Albumin 4.3 g/dL (3.5-5.0); Calcium 9.7 mg/dL (8.4-10.2); Potassium 4.3 mmol/L (3.5-5.1); Total Bilirubin 0.5 mg/dL (0.2-1.3); Total Protein 6.6 g/dL (6.3-8.2)
--- NOTE | 2020-03-23 05:33 | ED ---
Abdominal Pain HPI - General Chief Complaint: Abdominal Pain Stated Complaint: poss kidney stone Time Seen by Provider: 03/23/20 04:23 Source: patient Mode of arrival: ambulatory Limitations: no limitations - Related Data Home Medications Medication Instructions Recorded Confirmed Acetaminophen Tab [Tylenol Tab] 500 - 1,000 mg PO Q6H PRN 03/16/16 11/14/16 Ibuprofen [Motrin] 200 - 400 mg PO Q6H PRN 03/16/16 11/14/16 Previous Rx's Medication Instructions Recorded Ondansetron [Zofran] 4 mg PO Q8HR PRN #15 tab 11/14/16 Allergies Allergy/AdvReac Type Severity Reaction Status Date / Time No Known Allergies Allergy Verified 03/23/20 04:27 Review of Systems ROS Statement: Those systems with pertinent positive or pertinent negative responses have been documented in the HPI. ROS Other: All systems not noted in ROS Statement are negative. Past Medical History Past Medical History: No Reported History Additional Past Medical History / Comment(s): kidney stones History of Any Multi-Drug Resistant Organisms: None Reported Past Surgical History: Hernia Repair Past Psychological History: ADD/ADHD Smoking Status: Current some day smoker Past Alcohol Use History: None Reported Past Drug Use History: None Reported General Exam Limitations: no limitations Course Vital Signs 03/23/20 04:22 Temperature 98.5 F Pulse Rate 81 Respiratory 24 Rate Blood Pressure 136/95 O2 Sat by Pulse 97 Oximetry Medical Decision Making - Lab Data Result diagrams: 03/23/20 04:59 03/23/20 04:59 Lab Results 03/23/20 03/23/20 Range/Units 04:59 04:59 WBC 11.6 H (3.8-10.6) k/uL RBC 5.16 (4.30-5.90) m/uL Hgb 16.0 (13.0-17.5) gm/dL Hct 45.1 (39.0-53.0) % MCV 87.4 (80.0-100.0) fL MCH 31.0 (25.0-35.0) pg MCHC 35.4 (31.0-37.0) g/dL RDW 12.4 (11.5-15.5) % Plt Count 243 (150-450) k/uL MPV 6.5 Neutrophils % 79 % Lymphocytes % 13 % Monocytes % 5 % Eosinophils % 2 % Basophils % 0 % Neutrophils # 9.2 H (1.3-7.7) k/uL Lymphocytes # 1.6 (1.0-4.8) k/uL Monocytes # 0.5 (0-1.0) k/uL Eosinophils # 0.2 (0-0.7) k/uL Basophils # 0.1 (0-0.2) k/uL Sodium 138 (137-145) mmol/L Potassium 4.3 (3.5-5.1) mmol/L Chloride 103 (98-107) mmol/L Carbon Dioxide 27 (22-30) mmol/L Anion Gap 8 mmol/L BUN 24 H (9-20) mg/dL Creatinine 1.65 H (0.66-1.25) mg/dL Est GFR (CKD-EPI)AfAm 62 (>60 ml/min/1.73 sqM) Est GFR (CKD-EPI)NonAf 54 (>60 ml/min/1.73 sqM) Glucose 100 H (74-99) mg/dL Calcium 9.7 (8.4-10.2) mg/dL Total Bilirubin 0.5 (0.2-1.3) mg/dL AST 34 (17-59) U/L ALT 54 H (4-49) U/L Alkaline Phosphatase 61 (38-126) U/L Total Protein 6.6 (6.3-8.2) g/dL Albumin 4.3 (3.5-5.0) g/dL Amylase 44 (30-110) U/L Lipase 91 (23-300) U/L Disposition Clinical Impression: Abdominal pain, Left ureteral calculus Disposition: HOME SELF-CARE Condition: Fair Instructions (If sedation given, give patient instructions): Kidney Stones (ED) Is patient prescribed a controlled substance at d/c from ED?: No Referrals: None,Stated [Primary Care Provider] - 1-2 days
[2020-03-23] MEDS ORDERED: ACET/COD 300 MG/30 MG STARTER PACK 6 TAB BTL PO STA (05:43)
[2020-03-23] MEDS ORDERED: TAMSULOSIN 0.4 MG CAP.ER.24H PO STA (05:43)
[2020-03-23] MEDS ORDERED: IBUPROFEN 600 MG STARTER PACK 4 TAB BTL PO STA (05:43)
== END 2020-03-23 06:17 | disposition home or self-care (01) ==
LOC: EC 04:20
DX: N20.1 Calculus of ureter (principal); F17.200 Nicotine dependence, unspecified, uncomplicated
CPT/HCPCS: 74176; 80053; 82150; 83690; 85025; 96361; 96374; 96375; 99284

== ENCOUNTER → 2020-08-18 | Outpatient (CLI) | payer BC ==
[2020-08-18 20:02] LABS: Chol/HDL Ratio 4.79; LDL Cholesterol,Calculated 123.4 mg/dL (0.0-131.0); VLDL Calculation 39.6 mg/dL (5.00-40.00)
== END | disposition home or self-care (01) ==
LOC: LABWHC1 10:44
PROVIDERS: ATTEND Internal Medicine
DX: Z00.00 Encounter for general adult medical examination without abnormal findings (principal)
CPT/HCPCS: 36415; 80061; 82947

== ENCOUNTER 2023-12-10 05:46 | Emergency (ER) | payer BC ==
--- NOTE | 2023-12-10 06:06 | ED ---
General Adult HPI - General Chief complaint: Back Pain/Injury Stated complaint: Back Pain Time Seen by Provider: 12/10/23 06:00 Source: patient, RN notes reviewed, old records reviewed Mode of arrival: ambulatory Limitations: no limitations - History of Present Illness Initial comments: 38-year-old male with right mid back pain over the past several days. Patient states this is worse with movement. Patient denies cough or dyspnea. Denies specific injury. Denies urinary symptoms, no dysuria or hematuria. No vomiting. No fever. Pain is worse with bending. - Related Data Home Medications Medication Instructions Recorded Confirmed Acetaminophen Tab [Tylenol Tab] 500 - 1,000 mg PO Q6H PRN 03/16/16 11/14/16 Ibuprofen [Motrin] 200 - 400 mg PO Q6H PRN 03/16/16 11/14/16 Previous Rx's Medication Instructions Recorded Ondansetron [Zofran] 4 mg PO Q8HR PRN #15 tab 11/14/16 Ketorolac [Toradol] 10 mg PO Q6HR #10 tab 03/23/20 Cyclobenzaprine [Flexeril] 10 mg PO HS PRN #5 tab 12/10/23 Ibuprofen [Motrin] 600 mg PO Q8HR PRN #24 tab 12/10/23 Allergies Allergy/AdvReac Type Severity Reaction Status Date / Time No Known Allergies Allergy Verified 12/10/23 05:49 Review of Systems ROS Statement: Those systems with pertinent positive or pertinent negative responses have been documented in the HPI. ROS Other: All systems not noted in ROS Statement are negative. Past Medical History Past Medical History: No Reported History Additional Past Medical History / Comment(s): kidney stones History of Any Multi-Drug Resistant Organisms: None Reported Past Surgical History: Hernia Repair Past Psychological History: ADD/ADHD Smoking Status: Current every day smoker Past Alcohol Use History: None Reported Past Drug Use History: None Reported General Exam Limitations: no limitations General appearance: alert, in no apparent distress Head exam: Present: atraumatic, normocephalic Eye exam: Present: normal appearance, PERRL ENT exam: Present: normal exam Neck exam: Present: normal inspection. Absent: tenderness, meningismus Respiratory exam: Present: normal lung sounds bilaterally. Absent: respiratory distress, wheezes Cardiovascular Exam: Present: regular rate, normal rhythm GI/Abdominal exam: Present: soft. Absent: distended, tenderness Back exam: Present: CVA tenderness (R) Neurological exam: Present: alert, oriented X3, CN II-XII intact, normal gait. Absent: motor sensory deficit Psychiatric exam: Present: normal affect, normal mood Skin exam: Present: warm, dry, intact. Absent: cyanosis, diaphoretic Course Vital Signs 12/10/23 05:48 Temperature 98.7 F Pulse Rate 89 Respiratory 18 Rate Blood Pressure 128/87 O2 Sat by Pulse 97 Oximetry Medical Decision Making - Medical Decision Making Was pt. sent in by a medical professional or institution (, [facility], [facility], urgent care, hospital, or shelter...) When possible be specific @ -No Did you speak to anyone other than the patient for history (EMS, parent, family, police, friend...)? What history was obtained from this source @ -No Did you review nursing and triage notes (agree or disagree)? Why? @ -I reviewed and agree with nursing and triage notes Were old charts reviewed (outside hosp., previous admission, EMS record, old EKG, old radiological studies, urgent care reports/EKG's, shelter records)? Report findings @ -No old charts were reviewed Differential Musculoskeletal Muscular strain, contusion, ligament sprain, fracture, arthritis, septic arthritis, bursitis, cellulitis, muscle spasm, nerve compression, DVT, arterial occlusion, herpes zoster, electrolyte abnormality, tumor.... This is not meant to be in all inclusive list EKG interpreted by me (3pts min.). @ -As above X-rays interpreted by me (1pt min.). @ -Chest x-ray negative for acute cardiopulmonary findings CT interpreted by me (1pt min.). @ -None done U/S interpreted by me (1pt. min.). @ -None done What testing was considered but not performed or refused? (CT, X-rays, U/S, labs)? Why? @ -None What meds were considered but not given or refused? Why? @ -None Did you discuss the management of the patient with other professionals (professionals i.e. [facility] March, [facility], lab, RT, psych nurse, social services designee, deputy county counsel, teacher, commanding officer traffic division, case filler)? Give summary @ -No Was smoking cessation discussed for >3mins.? @ -No Was critical care preformed (if so, how long)? @ -No Were there social determinants of health that impacted care today? How? (Homelessness, low income, unemployed, alcoholism, drug addiction, transportat ion, low edu. Level, literacy, decrease access to med. care, half-way, rehab)? @ -No Was there de-escalation of care discussed even if they declined (Discuss DNR or withdrawal of care, Hospice)? DNR status @ -No What co-morbidities impacted this encounter? (DM, HTN, Smoking, COPD, CAD, Cancer, CVA, ARF, Chemo, Hep., AIDS, mental health diagnosis, sleep apnea, morbid obesity)? @ -None Was patient admitted / discharged? Hospital course, mention meds given and route, prescriptions, significant lab abnormalities, going to OR and other pertinent info. @ -[38-year-old male with mid right-sided back pain flank pain. Worse with movement. Symptoms do seem musculoskeletal however given the location I performed chest x-ray and urinalysis which were unremarkable. No bloody urine. Patient will take anti-inflammatories for pain. Patient will trial anti- inflammatories and muscle relaxers and return with worsening symptoms. Undiagnosed new problem with uncertain prognosis? @ -No Drug Therapy requiring intensive monitoring for toxicity (Heparin, Nitro, Insulin, Cardizem)? @ -No Were any procedures done? @ -No Diagnosis/symptom? @ -[Mid back pain Acute, or Chronic, or Acute on Chronic? @ -Acute Uncomplicated (without systemic symptoms) or Complicated (systemic symptoms)? @ -Default Side effects of treatment? @ -No Exacerbation, Progression, or Severe Exacerbation? @ -No Poses a threat to life or bodily function? How? (Chest pain, [place], CA, pneumonia, PE, COPD, DKA, ARF, appy, cholecystitis, CVA, Diverticulitis, Homicidal, Suicidal, threat to staff... and all critical care pts) @ -No - Lab Data Lab Results 12/10/23 Range/Units 06:29 Urine Color Colorless Urine Appearance Clear (Clear) Urine pH 6.0 (5.0-8.0) Ur Specific [place] 1.019 (1.001-1.035) Urine Protein Negative (Negative) Urine Glucose (UA) Negative (Negative) Urine Ketones Negative (Negative) Urine Blood Negative (Negative) Urine Nitrite Negative (Negative) Urine Bilirubin Negative (Negative) Urine Urobilinogen <2.0 (<2.0) mg/dL Ur Leukocyte Esterase Negative (Negative) Disposition Clinical Impression: Thoracic back pain Disposition: HOME SELF-CARE Condition: Fair Instructions (If sedation given, give patient instructions): Flank Pain (ED) Prescriptions: Cyclobenzaprine [Flexeril] 10 mg PO HS PRN #5 tab PRN Reason: Muscle Spasm Ibuprofen [Motrin] 600 mg PO Q8HR PRN #24 tab PRN Reason: Pain Is patient prescribed a controlled substance at d/c from ED?: No Referrals: None,Stated [Primary Care Provider] - 1-2 days Time of Disposition: 06:48
[2023-12-10 06:36] LABS: Appearance,Urine Clear (Clear); Bilirubin,Urine Negative (Negative); Blood,Urine Negative (Negative); Color,Urine Colorless; Glucose,Urine (UA) Negative (Negative); Ketones,Urine Negative (Negative); Leukocyte Esterase,Urine Negative (Negative); Nitrite,Urine Negative (Negative); Protein,Urine Negative (Negative); Specific Gravity,Urine 1.019 (1.001-1.035); Urobilinogen,Urine <2.0 mg/dL (<2.0)
--- NOTE | 2023-12-10 07:06 | XR ---
EXAMINATION TYPE: XR chest 2V DATE OF EXAM: 12/10/2023 6:26 AM CLINICAL INDICATION: Male, 38 years old with history of rt pos rib pain; [facility] COMPARISON: None TECHNIQUE: XR chest 2V Frontal view of the chest. FINDINGS: Lungs/Pleura: There is no evidence of pleural effusion, focal consolidation, or pneumothorax. Pulmonary vascularity: Unremarkable. Heart/mediastinum: Cardiomediastinal silhouette is unremarkable. Musculoskeletal: No acute osseous pathology. IMPRESSION: No acute cardiopulmonary disease/process. [facility], , 12/10/2023 7:03 AM
[2023-12-10 07:18] VITALS: BP 129/84; PULSE 72; RESP 16; TEMP 97.9
== END 2023-12-10 07:18 | disposition home or self-care (01) ==
LOC: EC 05:46
CPT/HCPCS: 71046; 81003; 99283